=== PATIENT | female | born 1945 | race Two or more races ===

== ENCOUNTER 2023-07-22 12:56 | Emergency (ER) | payer OTHER ==
[~2023-07-22] VITALS: Ht 165.1 cm; Wt 68.0 kg
[2023-07-22] MEDS ORDERED: ATORVASTATIN CA20 MG PO (13:08)
== END 2023-07-22 18:34 | disposition home or self-care (01) ==
LOC: ER 12:56
PROVIDERS: Emergency Medicine
DX: R10.32 Left lower quadrant pain (principal); K57.30 Diverticulosis of large intestine without perforation or abscess without bleeding; K80.20 Calculus of gallbladder without cholecystitis without obstruction
CPT/HCPCS: 36415; 74176; 96365; 96366; 96372; 99284; J1885; J2175; J2250; J3490